=== PATIENT | male | born 1950 | race Caucasian/White ===

== ENCOUNTER → 2016-11-08 | Outpatient (CLI) | payer OTHER, MEDICARE ==
--- NOTE | 2016-11-08 17:45 | DX ---
Right shoulder 3 views History: Pain. Comparison: PA and lateral chest December 19, 2013. Findings: No fracture is identified. There is equivocal superior subluxation of the glenohumeral piyush nt, which could be related to chronic rotator cuff tear. There is mild acromioclavicular arthrosis. T he acromioclavicular and coracoclavicular relationships are normal. Dextroscoliosis of the thoracic s pine is noted. Anterior fusion hardware in the cervical spine is noted. Impression: 1. Mild acromioclavicular arthrosis. 2. Equivocal mild superior subluxation of the humerus, which can be seen with rotator cuff tear. If s ymptoms persist and clinical suspicion warrants, consider MRI.
== END ==
LOC: FIMAGING 11:52
PROVIDERS: ATTEND Family Medicine
DX: S43.001A Unspecified subluxation of right shoulder joint, initial encounter (principal); X58.XXXA Exposure to other specified factors, initial encounter; M19.011 Primary osteoarthritis, right shoulder